=== PATIENT | female | born 1970 | race Caucasian/White ===

== ENCOUNTER 2017-02-10 21:14 | Emergency (ER) | payer MEDICAID, MEDICARE ==
[~2017-02-10] VITALS: Ht 167.6 cm; Wt 71.0 kg
[~2017-02-10 21:14] MED LIST: CLON.1 PO; LITH300C2 PO; RISP1 PO
[2017-02-10 21:19] VITALS: BP 134/78; PULSE 97; RESP 16; TEMP 98.8; O2SAT 100
[2017-02-11] MEDS ORDERED: LITH300T PO (00:13)
[2017-02-11] MEDS ORDERED: RISP2TAB37 PO (00:13)
[2017-02-11] MEDS ORDERED: RISP1 PO (00:13)
--- NOTE | 2017-02-11 00:22 | PD ---
HPI Chief Complaint: Anxiety Time Seen by Provider: 00:18 Travel History International Travel<30 days: No Contact w/Intl Traveler<30days: No Traveled to known affect area: No History of Present Illness HPI The patient's 46 years old. She reports a history of feeling anxious. She reports she was recently discharged from a correctional facility. There she was receiving lithium and Risperdal. She reports feeling very sleepy. She also appears very anxious when she wakes up in the morning. She thinks she might be hearing voices. She denies visual hallucination. She is not suicidal or homicidal ideation. She denies smoking tobacco. She denies illicit drug abuse. She denies drinking alcohol. She has no medical complaint. PFSH Past Medical History Hx Anticoagulant Therapy: No AAA: No ADD: No ADHD: No Alzheimer's Disease: No Anemia: No Arthritis: No Asthma: No Atrial Fibrillation: No Autoimmune Disease: No Blood Disorders: No Bipolar Disorder: Yes Anxiety: Yes Depression: Yes Heart Rhythm Problems: No Cancer: No Cardiac Catheterization: No Cardiomyopathy: No Cardiovascular Problems: No Cerebral Palsy: No High Cholesterol: No Chemotherapy: No Chest Pain: No Congestive Heart Failure: No Cirrhosis: No COPD: No Cerebrovascular Accident: No Coronary Artery Disease: No Cystic Fibrosis: No Dementia: No Developmental Delay: No Diabetes: No Dialysis: No Diminished Hearing: No Diverticulitis: No Deep Vein Thrombosis: No Endocrine: No Fibromyalgia: No Gastrointestinal Disorders: No Genetic Disorder: No GERD: No Glaucoma: No Gout: No Genitourinary: Yes (hx of uti ) Hepatitis: No Hiatal Hernia: No Heparin Induced Thrombocytopen: No Herniated Disk: No Hypertension: No Immune Disorder: No Inguinal Hernia: No Implanted Vascular Access Dvce: No Insomnia: Yes (occasional) Kidney Stones: No Musculoskeletal: No Neurologic: Yes Parkinson's Disease: No Psychiatric: Yes Reproductive: No Respiratory: No Resp. Syncytial Virus (RSV): No Integumentary: No Immunizations Current: Yes (as a child not recent) Migraines: No Myocardial Infarction: No Pancreatitis: No Pneumonia: No Radiation Therapy: No Renal Failure: No Schizophrenia: Yes Shingles: No Sickle Cell Disease: No Sleep Apnea: No Thyroid Disease: No Triglycerides - High: No Ulcer: No Influenza Vaccination: No PNEUMOCCOCAL Vaccine (Year): 2 ?: Not LMP: 11/29/2016 : 1 Para: 1 Miscarriage: 0 : 0 Ectopic : No Ovarian Cysts: Yes (removed in 2001 ) Dilation and Curettage (D&C): No Tubal Ligation: No Past Surgical History Abdominal Aneurysm Repair: No Abdominal Surgery: No AICD: No Appendectomy: No Arteriovenous Shunt: No Cardiac Surgery: No Section: Yes Cholecystectomy: No Coronary Artery Bypass Graft: No Coronary Stent: No Ear Surgery: No Endocrine Surgery: No Eye Surgery: No Genitourinary Surgery: No Gynecologic Surgery: Yes (removal of right ovarian cyst 2001) Hysterectomy: No Insulin Pump: No Joint Replacement: No Mastectomy: No Neurologic Surgery: No Oral Surgery: No Pacemaker: No Prostatectomy: No Thoracic Surgery: No Tonsillectomy: No Tympanostomy Tube: No Valve Replacement: No Other Surgery: Yes Family History Family Hypercholesterolemia: No Social History Alcohol Use: No Tobacco Use: No Substance Use: No Allergies-Medications (Allergen,Severity, Reaction): Coded Allergies: Penicillin (Verified Allergy, Severe, 02/10/17) Reported Meds & Prescriptions Reported Meds & Active Scripts Active Reported Risperdal (Risperidone) 2 Mg Tab 2 Mg PO HS [place] Carbonate ER ([place] Carbonate) 300 Mg Tab 150 Mg PO BID Review of Systems Except as stated in HPI: all other systems reviewed are Neg Psychiatric: Positive: Depression, No: Suicidal Ideations, Substance Abuse, Homicidal Ideation Physical Exam Narrative GENERAL: 46-year-old female pleasant well-nourished well-developed SKIN: Warm and dry. HEAD: Atraumatic. Normocephalic. EYES: Pupils equal and round. No scleral icterus. No injection or drainage. ENT: No nasal bleeding or discharge. Mucous membranes pink and moist. NECK: Trachea midline. No JVD. CARDIOVASCULAR: Regular rate and rhythm. No murmur appreciated. RESPIRATORY: No accessory muscle use. Clear to auscultation. Breath sounds equal bilaterally. GASTROINTESTINAL: Abdomen soft, non-tender, nondistended. Hepatic and splenic margins not palpable. MUSCULOSKELETAL: No obvious deformities. No clubbing. No cyanosis. No edema. NEUROLOGICAL: Awake and alert. No obvious cranial nerve deficits. Motor grossly within normal limits. Normal speech. PSYCHIATRIC: No suicidal or homicidal ideation. Data Data Last Documented VS Vital Signs Date Time Temp Pulse Resp B/P Pulse Ox O2 Delivery O2 Flow Rate FiO2 02/10/17 21:19 98.8 97 16 134/78 100 Room Air Vital signs reviewed Orders Complete Blood Count With Diff (02/11/17 00:18) Basic Metabolic Panel (Bmp) (02/11/17 00:18) Psych Screen (02/11/17 00:18) [place] (Li) (02/11/17 00:18) Drug Screen, Random Urine (02/11/17 00:18) Alcohol (Ethanol) (02/11/17 00:18) [place] Carbonate (Lithotabs) (02/11/17 02:15) Labs Laboratory Tests Test 02/11/17 00:45 White Blood Count 8.7 TH/MM3 Red Blood Count 3.87 MIL/MM3 Hemoglobin 11.5 GM/DL Hematocrit 33.8 % Mean Corpuscular Volume 87.3 FL Mean Corpuscular Hemoglobin 29.8 PG Mean Corpuscular Hemoglobin 34.1 % Concent Red Cell Distribution Width 12.9 % Platelet Count 197 TH/MM3 Mean Platelet Volume 9.2 FL Neutrophils (%) (Auto) 66.9 % Lymphocytes (%) (Auto) 24.8 % Monocytes (%) (Auto) 7.2 % Eosinophils (%) (Auto) 0.7 % Basophils (%) (Auto) 0.4 % Neutrophils # (Auto) 5.8 TH/MM3 Lymphocytes # (Auto) 2.2 TH/MM3 Monocytes # (Auto) 0.6 TH/MM3 Eosinophils # (Auto) 0.1 TH/MM3 Basophils # (Auto) 0.0 TH/MM3 CBC Comment DIFF FINAL Differential Comment Sodium Level 145 MEQ/L Potassium Level 3.5 MEQ/L Chloride Level 109 MEQ/L Carbon Dioxide Level 25.1 MEQ/L Anion Gap 11 MEQ/L Blood Urea Nitrogen 8 MG/DL Creatinine 0.63 MG/DL Estimat Glomerular Filtration 102 ML/MIN Rate Random Glucose 109 MG/DL Calcium Level 8.6 MG/DL Urine Opiates Screen NEG Urine Barbiturates Screen NEG Urine Amphetamines Screen NEG Urine Benzodiazepines Screen NEG [place] Level 0.3 MEQ/L Urine Cocaine Screen NEG Urine Cannabinoids Screen NEG Ethyl Alcohol Level LESS THAN 3 MG/DL MDM Medical Decision Making Medical Screen Exam Complete: Yes Emergency Medical Condition: Yes Medical Record Reviewed: Yes Differential Diagnosis Altered mental status/psychosis due to infection/environmental exposure/ metabolic abnormality, polypharmacy, alcohol abuse/intoxication, illicit or prescribed drug abuse, malingering/secondary gain, non-organic psychiatric disease Narrative Course CBC & BMP Diagram 02/11/17 00:45 Urine toxicology is negative Blood alcohol is less than 3 [place] is 0.3 300mg [place] given in ER. The history of present illness, ROS, physical exam, review of records and medical workup performed for today's visit have reasonably safely excluded organic etiologies for the patient's presenting complaint. We will continue to monitor the patient carefully in the ER until time of evaluation by the psychiatry service. We are available for any additional medical assistance if needed during the patient's ER course. Disposition per discretion of psychiatry is appreciated. Diagnosis Primary Impression: Anxiety Additional Impression: Abnormal lithium level in blood Vlad Natarajan MD Feb 11, 2017 00:22 Vlad Natarajan MD Feb 11, 2017 00:22
[2017-02-11 01:02] LABS: AUTOMATED NEUTROPHIL # 5.8 TH/MM3 (1.8-7.7); BASOPHIL % 0.4 % (0.0-2.0); EOSINOPHIL # 0.1 TH/MM3 (0-0.4); EOSINOPHIL % 0.7 % (0.0-4.0); HEMATOCRIT 33.8 % (35.0-46.0); HEMO FLAGS DIFF FINAL; LYMPH % 24.8 % (9.0-44.0); LYMPHOCYTE # 2.2 TH/MM3 (1.0-4.8); MEAN CELL VOLUME 87.3 FL (80.0-100.0); MEAN CORPUSCULAR HEMOGLOBIN 29.8 PG (27.0-34.0); MEAN CORPUSCULAR HGB CONC 34.1 % (32.0-36.0); MONO % 7.2 % (0.0-8.0); NEUT % 66.9 % (16.0-70.0); PLATELET COUNT 197 TH/MM3 (150-450); RED BLOOD COUNT 3.87 MIL/MM3 (4.00-5.30); RED CELL DISTRIBUTION WIDTH 12.9 % (11.6-17.2); WHITE BLOOD COUNT 8.7 TH/MM3 (4.0-11.0)
[2017-02-11 01:13] LABS: AMPHETAMINE, URINE NEG (NEG); BARBITURATES, URINE NEG (NEG); COCAINE, URINE NEG (NEG)
[2017-02-11 01:17] LABS: ANION GAP 11 MEQ/L (5-15); BICARBONATE 25.1 MEQ/L (21.0-32.0); BLOOD UREA NITROGEN 8 MG/DL (7-18); CHLORIDE 109 MEQ/L (98-107); GLOMERULAR FILTRATION RATE 102 ML/MIN (>89); POTASSIUM 3.5 MEQ/L (3.5-5.1); SODIUM (NA) 145 MEQ/L (136-145)
[2017-02-11] MEDS ORDERED: LITHIUM CARBONATE 300 MG TAB PO ONE (02:15)
--- NOTE | 2017-02-11 08:37 | MB ---
cc: DANIEL SOTELO MD DATE OF CONSULTATION 02/11/2017 PHYSICIAN REQUESTING CONSULTATION Emergency Department REASON FOR CONSULTATION Voluntary psychiatric evaluation. HISTORY OF PRESENT ILLNESS Ms. Bowser is a 46-year-old female with a reported history of schizoaffective disorder who presents on a voluntary basis to the emergency department for psychiatric evaluation. There were no claims of any suicidality or homicidality nor a decompensated psychosis. Reviewing the electronic medical record, I note that the patient was admitted most recently here in March 2016 under my care, and I do see that I made at notation at that time that her psychiatric symptomatology was minimal. The patient seen and examined. Chart reviewed. Case discussed with nursing staff who reports that the patient has been no behavioral problem, nor has there been any evidence of any suicidality or homicidality during observation in the J-pod. On my examination today, the patient appears to be in good spirits and generally euthymic. She is laughing and joking appropriately. She says that her stated reason for coming into the emergency room was because "I am supposed to be going to the [facility] to see if I can get her room for rent, unless you can house me here for awhile." She denies any suicidal or homicidal ideation. She is future oriented with several near and long-term goals. She denies any audiovisual hallucinations at this time and I can elicit no delusional beliefs. She denies any command auditory hallucinations. Her mood is fairly good and I can elicit no depressive or hypomanic/manic symptoms. She reports that she is sleeping and eating well. The remainder of the psychiatric ROS is negative. The patient says that we can either house her here for a while or perhaps get her closer to the [facility] or [place], our choice. PAST PSYCHIATRIC HISTORY The patient reports prior diagnosis of schizoaffective disorder. She follows on an outpatient basis at [facility] and last saw her provider there six months ago she says. She was hospitalized at [facility] about six months ago for anxiety. She denies a history of shane gucci suicide attempts, but does report a history of non suicidal self-injurious behavior. FAMILY HISTORY The patient denies a family history of serious mental illness or suicide. CHEMICAL DEPENDENCY HISTORY The patient denies any abuse of drugs or alcohol. SOCIAL HISTORY The patient is presently without stable housing. She is high school educated and also has two use a college. She is on disability. She is single and has a son who lives with his father. She denies any history. Denies any access to guns or firearms. Denies any active legal issues but apparently was recently under some sort of charges. She denies any history of violent crime. PAST MEDICAL HISTORY The patient denies. REVIEW OF SYSTEMS No reported headache, vision or hearing changes, chest pain, shortness of breath, bowel or bladder issues. No other physical complaints. PHYSICAL EXAMINATION VITAL SIGNS: T98.8; P97; R16; BP 134/78; SpO2 100% RA Physical examination was completed in the emergency room by the ER staff and the patient was medically cleared. On my examination today, the patient appears to be in no acute physical distress. She is well-nourished and well-developed. No motoric abnormalities noted. LABORATORY Reviewed, CBC reveals mild anemia. BMP fairly unremarkable. Toxicology negative. [place] level was 0.3. MENTAL STATUS EXAM The patient is in hospital gown. She is fairly well-groomed and certainly maintaining basic hygiene. She is awake, alert and oriented x3. No evidence of delirium. No abnormal motor movements noted. Speech is within normal limits for rate, tone and volume. Language and fund of knowledge seem average. Mood is fairly good and affect is bright, full and reactive and euthymic. Thought process linear. No loosening of associations. No evident delusions. Denies audiovisual hallucinations. Denies suicidal or homicidal ideation. Insight and judgment are fair. ASSESSMENT/PLAN 1. Suspect malingering for fpc, Z76.5. 2. History of schizoaffective disorder, presently stable, F25.0. This is a 46-year-old female with psychiatric history as detailed above who presents on a voluntary basis for psychiatric evaluation. The patient reports a dearth of psychiatric symptomatology now. She denies any suicidal or homicidal ideation. There is no evident unstable mood, anxiety or psychotic disorder in this patient at this time. Her stated goal in coming into the emergency room with reported psychiatric symptoms was so that we could house her until she could get into the room that she plans to rent. The patient does not meet criteria for inpatient psychiatric hospitalization at this time. I have recommended that she follow up with her outpatient psychiatric provider and remain adherent with medications. I have counseled the patient regarding warning signs for need to return to the psychiatric emergency room as part of a general safety plan. The patient is otherwise psychiatrically clear for discharge from the emergency room. Thank you very much for this consultation. Daniel OLMEDO /8:07 AM /8:19 AM HARMONY
== END 2017-02-11 08:28 | disposition home or self-care (01) ==
LOC: NEPE 21:14 → NEPJ 02-11 08:28
DX: F41.9 Anxiety disorder, unspecified (principal); F31.9 Bipolar disorder, unspecified; F20.9 Schizophrenia, unspecified
CPT/HCPCS: 80048; 80178; 80307; 85025; 99284

== ENCOUNTER 2017-07-17 18:50 | Emergency (ER) | payer MEDICARE ==
[~2017-07-17] VITALS: Ht 167.6 cm; Wt 85.0 kg
[~2017-07-17 18:50] MED LIST changes: -CLON.1 PO; -LITH300C2 PO; +LITH300T PO; -RISP1 PO; +RISP2TAB37 PO
[2017-07-17 19:03] VITALS: BP 127/70; PULSE 79; RESP 18; TEMP 98.2; O2SAT 97
[2017-07-17] MEDS ORDERED: SERT-132 PO (19:04)
--- NOTE | 2017-07-17 19:07 | PD ---
HPI Chief Complaint: psychiatric evaluation Time Seen by Provider: 18:55 Travel History International Travel<30 days: No Contact w/Intl Traveler<30days: No Traveled to known affect area: No History of Present Illness HPI The patient was seen and examined in the presence of the nurse. This patient called 911 and requested the paramedics bring her so she could have a psychiatric evaluation. She denies feeling suicidal but does admit to depression and occasionally hears voices. She thinks she may need some medication adjustments. She denies overdose or any alcohol or drug use. Severity is moderate. Duration one week. No alleviating factors. She reports compliance with her psychiatric medication PFSH Past Medical History Hx Anticoagulant Therapy: No AAA: No ADD: No ADHD: No Alzheimer's Disease: No Anemia: No Arthritis: No Asthma: No Atrial Fibrillation: No Autoimmune Disease: No Blood Disorders: No Bipolar Disorder: Yes Anxiety: Yes Depression: Yes Heart Rhythm Problems: No Cancer: No Cardiac Catheterization: No Cardiomyopathy: No Cardiovascular Problems: No Cerebral Palsy: No High Cholesterol: No Chemotherapy: No Chest Pain: No Congestive Heart Failure: No Cirrhosis: No COPD: No Cerebrovascular Accident: No Coronary Artery Disease: No Cystic Fibrosis: No Dementia: No Developmental Delay: No Diabetes: No Dialysis: No Diminished Hearing: No Diverticulitis: No Deep Vein Thrombosis: No Endocrine: No Fibromyalgia: No Gastrointestinal Disorders: No Genetic Disorder: No GERD: No Glaucoma: No Gout: No Genitourinary: Yes (hx of uti ) Hepatitis: No Hiatal Hernia: No Heparin Induced Thrombocytopen: No Herniated Disk: No Hypertension: No Immune Disorder: No Inguinal Hernia: No Implanted Vascular Access Dvce: No Insomnia: Yes (occasional) Kidney Stones: No Musculoskeletal: No Neurologic: Yes Parkinson's Disease: No Psychiatric: Yes Reproductive: No Respiratory: No Resp. Syncytial Virus (RSV): No Integumentary: No Immunizations Current: Yes (as a child not recent) Migraines: No Myocardial Infarction: No Pancreatitis: No Pneumonia: No Radiation Therapy: No Renal Failure: No Schizophrenia: Yes Shingles: No Sickle Cell Disease: No Sleep Apnea: No Thyroid Disease: No Triglycerides - High: No Ulcer: No PNEUMOCCOCAL Vaccine (Year): 2 : 1 Para: 1 Miscarriage: 0 : 0 Ectopic : No Ovarian Cysts: Yes (removed in 2001 ) Dilation and Curettage (D&C): No Tubal Ligation: No Past Surgical History Abdominal Aneurysm Repair: No Abdominal Surgery: No AICD: No Appendectomy: No Arteriovenous Shunt: No Cardiac Surgery: No Section: Yes Cholecystectomy: No Coronary Artery Bypass Graft: No Coronary Stent: No Ear Surgery: No Endocrine Surgery: No Eye Surgery: No Genitourinary Surgery: No Gynecologic Surgery: Yes (removal of right ovarian cyst 2001) Hysterectomy: No Insulin Pump: No Joint Replacement: No Mastectomy: No Neurologic Surgery: No Oral Surgery: No Pacemaker: No Prostatectomy: No Thoracic Surgery: No Tonsillectomy: No Tympanostomy Tube: No Valve Replacement: No Other Surgery: Yes Family History Family Hypercholesterolemia: No Social History Alcohol Use: No Tobacco Use: No Substance Use: No Allergies-Medications (Allergen,Severity, Reaction): Coded Allergies: penicillin G (Unverified Allergy, Severe, 07/17/17) Reported Meds & Prescriptions Reported Meds & Active Scripts Active Reported Sertraline (Sertraline HCl) 50 Mg Tab 50 Mg PO DAILY Risperdal (Risperidone) 2 Mg Tab 2 Mg PO HS [place] Carbonate ER ([place] Carbonate) 300 Mg Tab 150 Mg PO TID Review of Systems General / Constitutional: No: Fever Eyes: No: Visual changes HENT: No: Headaches Cardiovascular: No: Chest Pain or Discomfort Respiratory: No: Shortness of Breath Gastrointestinal: No: Abdominal Pain Genitourinary: No: Dysuria Musculoskeletal: No: Pain Skin: No Rash Neurologic: No: Weakness Psychiatric: Positive: Depression, Disorder of Thought Endocrine: No: Polydipsia Hematologic/Lymphatic: No: Easy Bruising Physical Exam Narrative GENERAL: Well-nourished, well-developed patient in no apparent distress. SKIN: Focused skin assessment reveals no rash and nodules. Skin is Warm and dry. HEAD: Atraumatic. Normocephalic. EYES: Pupils equal and round. No scleral icterus. No injection or drainage. ENT: No nasal bleeding or discharge. Mucous membranes pink and moist. NECK: Trachea midline. No JVD. CARDIOVASCULAR: Regular rate and rhythm. No murmur appreciated. RESPIRATORY: No accessory muscle use. Clear to auscultation. Breath sounds equal bilaterally. GASTROINTESTINAL: Abdomen soft, non-tender, nondistended. Hepatic and splenic margins not palpable. MUSCULOSKELETAL: No obvious deformities. No clubbing. No cyanosis. No edema. NEUROLOGICAL: Awake and alert. No obvious cranial nerve deficits. Motor grossly within normal limits. Normal speech. PSYCHIATRIC: Appropriate mood and affect; insight and judgment questionable Data Data Last Documented VS Vital Signs Date Time Temp Pulse Resp B/P Pulse Ox O2 Delivery O2 Flow Rate FiO2 07/17/17 19:03 98.2 79 18 127/70 97 Orders Complete Blood Count With Diff (07/17/17 19:03) Basic Metabolic Panel (Bmp) (07/17/17 19:03) Ed Urine Pregnancytest Poc (07/17/17 19:03) Psych Screen (07/17/17 19:03) [place] (Li) (07/17/17 19:03) Drug Screen, Random Urine (07/17/17 19:03) Alcohol (Ethanol) (07/17/17 19:03) Labs Laboratory Tests Test 07/17/17 07/17/17 19:19 19:22 Urine Opiates Screen NEG Urine Barbiturates Screen NEG Urine Amphetamines Screen NEG Urine Benzodiazepines Screen NEG Urine Cocaine Screen NEG Urine Cannabinoids Screen NEG White Blood Count 8.6 TH/MM3 Red Blood Count 3.75 MIL/MM3 Hemoglobin 11.2 GM/DL Hematocrit 33.9 % Mean Corpuscular Volume 90.5 FL Mean Corpuscular Hemoglobin 29.8 PG Mean Corpuscular Hemoglobin 32.9 % Concent Red Cell Distribution Width 13.0 % Platelet Count 196 TH/MM3 Mean Platelet Volume 9.0 FL Neutrophils (%) (Auto) 69.2 % Lymphocytes (%) (Auto) 21.9 % Monocytes (%) (Auto) 5.7 % Eosinophils (%) (Auto) 2.6 % Basophils (%) (Auto) 0.6 % Neutrophils # (Auto) 6.0 TH/MM3 Lymphocytes # (Auto) 1.9 TH/MM3 Monocytes # (Auto) 0.5 TH/MM3 Eosinophils # (Auto) 0.2 TH/MM3 Basophils # (Auto) 0.1 TH/MM3 CBC Comment DIFF FINAL Differential Comment Sodium Level 141 MEQ/L Potassium Level 3.3 MEQ/L Chloride Level 109 MEQ/L Carbon Dioxide Level 24.7 MEQ/L Anion Gap 7 MEQ/L Blood Urea Nitrogen 12 MG/DL Creatinine 0.78 MG/DL Estimat Glomerular Filtration 80 ML/MIN Rate Random Glucose 124 MG/DL Calcium Level 8.2 MG/DL [place] Level 0.3 MEQ/L Ethyl Alcohol Level LESS THAN 3 MG/DL MDM Medical Decision Making Medical Screen Exam Complete: Yes Emergency Medical Condition: Yes Medical Record Reviewed: Yes Differential Diagnosis Psychosis, depression, suicidal ideation Narrative Course I have reviewed the patient's electronic medical record. Patient is a very frequent visitor for psychiatric problems Ordered a medical clearance workup CBC is normal Metabolic profile shows minor hypokalemia [place] level 0.3 Alcohol is negative Drug screen is negative Urine is negative I've ordered psychiatric evaluation as that is the chief reason she came. She requests this. Patient is is medically stable as can be made. Disposition will be per psychiatry after screening. I suspect they will recommend outpatient follow-up. Diagnosis Primary Impression: Schizo-affective schizophrenia, chronic condition with acute exacerbation Humble Moise MD Jul 17, 2017 19:07
[2017-07-17 19:50] LABS: BASOPHIL # 0.1 TH/MM3 (0-0.2); BASOPHIL % 0.6 % (0.0-2.0); EOSINOPHIL # 0.2 TH/MM3 (0-0.4); EOSINOPHIL % 2.6 % (0.0-4.0); HEMATOCRIT 33.9 % (35.0-46.0); HEMO FLAGS DIFF FINAL; LYMPH % 21.9 % (9.0-44.0); LYMPHOCYTE # 1.9 TH/MM3 (1.0-4.8); MEAN CELL VOLUME 90.5 FL (80.0-100.0); MEAN CORPUSCULAR HEMOGLOBIN 29.8 PG (27.0-34.0); MEAN CORPUSCULAR HGB CONC 32.9 % (32.0-36.0); MONO % 5.7 % (0.0-8.0); NEUT % 69.2 % (16.0-70.0); PLATELET COUNT 196 TH/MM3 (150-450); RED BLOOD COUNT 3.75 MIL/MM3 (4.00-5.30); WHITE BLOOD COUNT 8.6 TH/MM3 (4.0-11.0)
[2017-07-17 20:02] LABS: ANION GAP 7 MEQ/L (5-15); BICARBONATE 24.7 MEQ/L (21.0-32.0); BLOOD UREA NITROGEN 12 MG/DL (7-18); CHLORIDE 109 MEQ/L (98-107); GLOMERULAR FILTRATION RATE 80 ML/MIN (>89); POTASSIUM 3.3 MEQ/L (3.5-5.1); SODIUM (NA) 141 MEQ/L (136-145)
[2017-07-17 20:03] LABS: ALCOHOL LESS THAN 3 MG/DL (0-5)
[2017-07-17 23:20] VITALS: BP 140/81; PULSE 72; RESP 18; TEMP 97.4; O2SAT 99
[2017-07-18 03:00] VITALS: BP 111/60; PULSE 78; RESP 18; O2SAT 98
[2017-07-18 06:42] VITALS: BP 112/69; PULSE 85; RESP 18; O2SAT 99
== END 2017-07-18 10:40 | disposition short-term general hospital (02) ==
LOC: NEPD 18:50 → NEPJ 07-18 10:40
DX: F25.8 Other schizoaffective disorders (principal); Z86.59 Personal history of other mental and behavioral disorders; Z87.440 Personal history of urinary (tract) infections; Z86.69 Personal history of other diseases of the nervous system and sense organs
CPT/HCPCS: 80048; 80178; 80307; 84703; 85025; 99285